=== PATIENT | female | born 1955 | race Caucasian/White ===

== ENCOUNTER 2016-12-28 16:26 | Emergency (ER) | payer OTHER ==
--- NOTE | 2016-12-28 18:44 | Emergency Department Report ---
Chief Complaint: Weakness Stated Complaint: PAIN RT HIP/WEAK - HPI History of Present Illness: DRASTIC WEIGHT LOSS IN 1 M VAG BLEED POST MENOPAUSE PALE DIAPHORETIC WEAK PMH NONE RX NONE PSH NONE - Exam Vital Signs: Vital Signs 12/28/16 18:37 Temperature 97.6 F Pulse Rate 71 Respiratory 20 Rate Blood Pressure 226/111 O2 Sat by Pulse 100 Oximetry MSE screening note: Focused history and physical exam performed. Due to findings the following was ordered: ED Disposition for MSE Condition: Stable
[2016-12-28 19:14] LABS: Mean Corpuscular HGB Conc 31 % (30-34); Platelet Count 337 K/mm3 (140-440); Red Blood Count 3.16 M/mm3 (3.65-5.03)
[2016-12-28 19:17] LABS: White Blood Count 37.1 K/mm3 (4.5-11.0)
[2016-12-28 19:19] LABS: Hematocrit 18.7 % (30.3-42.9); Hemoglobin 5.8 gm/dl (10.1-14.3)
[2016-12-28 19:20] LABS: Mean Corpuscular Hemoglobin 18 pg (28-32); Mean Corpuscular Volume 59 fl (79-97); Red Cell Distribution Width 27.2 % (13.2-15.2)
[2016-12-28 19:25] LABS: Albumin 3.4 g/dL (3.9-5); Albumin/Globulin Ratio 0.8 %; Bilirubin,Total 0.2 mg/dL (0.1-1.2); Calcium 8.8 mg/dL (8.4-10.2); Chloride 86.8 mmol/L (98-107); Total Protein 7.6 g/dL (6.3-8.2)
[2016-12-28 19:32] LABS: BUN/Creatinine Ratio 7.21
[2016-12-28 19:34] LABS: Potassium 8.4 mmol/L (3.6-5.0)
[2016-12-28 20:15] LABS: Basophils % (Manual) 0.5 % (0.0-1.8); Blastocytes % (Manual) 0 %; Eosinophils % (Manual) 0 % (0.0-4.3); Nucleated Red Blood Cells 0.5 % (0.0-0.9)
[2016-12-28 20:16] LABS: Hypochromasia 2+
[2016-12-28 20:17] LABS: Anisocytosis 3+; Microcytosis 3+
[2016-12-28 20:18] LABS: Poikilocytosis 3+
[2016-12-28 20:19] LABS: Elliptocytes 2+; Schistocytes 1+; Smudge Cells 1+
[2016-12-28 20:20] LABS: Diff Status Complete; Platelet Estimate Consistent w Auto; Polychromasia Few; Target Cells Few
--- NOTE | 2016-12-28 20:35 | Emergency Department Report ---
- General Chief complaint: Weakness Stated complaint: PAIN RT HIP/WEAK Time Seen by Provider: 12/28/16 20:29 Source: patient Mode of arrival: Ambulatory Limitations: Language Barrier - History of Present Illness Initial comments: Patient is a 61-year-old female with no known past medical history has not seen her doctor in many years presenting today because of generalized weakness. Patient has been generally feeling poor but is unable to explain exactly how long, appears to a months to possibly a year or so. She states that she has bilateral pelvic pain, vaginal bleeding for the last 1 month, lightheadedness, leg swelling on the right lower extremity, significant weight loss with about 20 or so pounds in the last month. - Related Data Allergies Allergy/AdvReac Type Severity Reaction Status Date / Time No Known Allergies Allergy Verified 12/28/16 20:01 ED Review of Systems ROS: Stated complaint: PAIN RT HIP/WEAK Other details as noted in HPI Comment: All other systems reviewed and negative Constitutional: denies: chills, fever ENT: denies: throat pain Respiratory: denies: cough, shortness of breath Cardiovascular: denies: chest pain Gastrointestinal: abdominal pain. denies: vomiting Skin: denies: rash Psychiatric: anxiety ED Physical Exam - General Limitations: Language Barrier General appearance: alert, other (pale, lethargic) - Head Head exam: Present: atraumatic - Eye Eye exam: Present: other (conjunctiva pale) - ENT ENT exam: Present: normal exam, normal orophraynx - Neck Neck exam: Present: normal inspection - Respiratory Respiratory exam: Present: normal lung sounds bilaterally. Absent: respiratory distress, wheezes - Cardiovascular Cardiovascular Exam: Present: regular rate, normal rhythm - GI/Abdominal GI/Abdominal exam: Present: soft. Absent: distended, tenderness, guarding - Extremities Exam Extremities exam: Present: normal inspection - Neurological Exam Neurological exam: Present: alert. Absent: motor sensory deficit - Psychiatric Psychiatric exam: Present: normal affect - Skin Skin exam: Absent: rash ED Course Vital Signs 12/28/16 12/28/16 18:37 20:47 Temperature 97.6 F Pulse Rate 71 82 Respiratory 20 Rate Blood Pressure 226/111 212/130 O2 Sat by Pulse 100 Oximetry - Reevaluation(s) Reevaluation #1: 12/28/16 22:11 The potassium was confirmed, medications to lower potassium were ordered, however the EKG did not show any changes consistent with hyperkalemia including a normal QRS and no hyperacute T waves. Reevaluation #2: 12/28/16 23:[address] Mari stave and bolt equalizer/onc fellow - will start process for transfer Reevaluation #3: 12/28/16 23:58 [facility] will accept Transfer under Dr. Kody Weaver, HOT DIP PLATING SUPERVISOR Reevaluation #4: 12/29/16 00:07 Spoke to family who is coming back in to the ER Reevaluation #5: 12/29/16 01:38 Patient will not be able to get dialysis without admission here, this will complicate transfer and patient is better to be transfered to [facility] where they can initiate dialysis. 12/29/16 01:[address] Mari at [facility] that patient has not received dialysis. Will initiate transfer. - Consultations Consultation #1: 12/28/16 22:36 Spoke to Jukebox Operator fashion editor, will arrange for emergent dialysis, request vascular surgeon for catheter placement 12/29/16 00:18 Spoke to sample grinder again, we'll need about 2 hours of dialysis. The dialysis nurse has been called and she is supposed to be on her way. Plan will be for the patient to receive dialysis prior to transfer. 12/29/16 01:17 Apparently unable to get ahold of dialysis nurse for the past 3 hours, just got in touch with the nurse, coming in now for dialysis; patient is having vasccath placed currently Consultation #2: 12/28/16 23:[address] Romero, recommended transfer as there is no stave and bolt equalizer-onc and since this mass that is likely cancerous and causing obstruction so not be something that can be operated on at this hospital. Calling transfer center Consultation #3: 12/28/16 23:24 Spoke to vascular surgeon, coming in to place vas-cath ED Medical Decision Making - Lab Data Result diagrams: 12/28/16 20:34 12/28/16 20:12 Critical Care Time: Yes Critical care time in (mins) excluding proc time.: 120 Critical care attestation.: If time is entered above; I have spent that time in minutes in the direct care of this critically ill patient, excluding procedure time. ED Disposition Clinical Impression: Hyperkalemia Acute renal failure (ARF) Qualifiers: Acute renal failure type: unspecified Qualified Code(s): N17.9 - Acute kidney failure, unspecified Anemia Qualifiers: Anemia type: unspecified type Qualified Code(s): D64.9 - Anemia, unspecified Hypertension Qualifiers: Hypertension type: unspecified secondary hypertension Qualified Code(s): I15.9 - Secondary hypertension, unspecified Disposition: DC/TX SHORT-TERM GEN HOSP INPT Is pt being admited?: No Condition: Critical Instructions: Hypertension (ED) Referrals: PRIMARY CARE, [Primary Care Provider] - 3-5 Days Time of Disposition: 22:44
[2016-12-28] MEDS: APRESOLINE IV ONE (20:47)
[2016-12-28 20:48] VITALS: BP 212/130
[2016-12-28 20:53] LABS: INR 1.1 (0.87-1.13)
[2016-12-28 20:54] LABS: Calcium 8.8 mg/dL (8.4-10.2); Chloride 85.2 mmol/L (98-107)
[2016-12-28 20:54] LABS: Partial Thromboplastin Time 35.6 Sec. (24.2-36.6)
[2016-12-28 20:57] LABS: Phosphorous 12.7 mg/dL (2.5-4.5)
[2016-12-28 21:03] LABS: BUN/Creatinine Ratio 7.21
[2016-12-28 21:04] LABS: Potassium 8.2 mmol/L (3.6-5.0)
[2016-12-28 21:22] LABS: Mean Corpuscular HGB Conc 30 % (30-34); Platelet Count 294 K/mm3 (140-440); Red Blood Count 3.16 M/mm3 (3.65-5.03)
--- NOTE | 2016-12-28 21:33 | Cat Scan Report ---
FINAL REPORT PROCEDURE: CT abdomen and pelvis without contrast. TECHNIQUE: Computerized axial tomography of the abdomen and pelvis was performed without intravenous contrast. This study is performed without intravascular contrast material and its sensitivity for abdominal and pelvic pathology, including neoplasms, inflammation, abscess, free fluid, thrombosis, arterial dissection and infarction, is reduced compared with a contrast enhanced study. HISTORY: Pelvic pain, bleeding, concern for cancer. COMPARISON: No prior studies are available for comparison. FINDINGS: The lung bases are clear. There is a small right pleural effusion. The heart size is normal. There is a small focal mass of low attenuation within the right lobe of the liver. This measures 17 millimeters x 11 millimeters. It may represent a simple cyst but is an indeterminate finding. The spleen and pancreas are grossly normal. Cholecystectomy clips are present. There is no biliary dilatation. The adrenal glands are not enlarged. Both kidneys appear normal in size. There is moderately severe bilateral hydronephrosis and hydroureter. Dilated ureters can be followed into the lower pelvis. There is some infiltration of the retroperitoneal fat medial to the kidneys and adjacent to the ureters. This may represent some extravasation of urine. The abdominal aorta has a normal caliber. There is no definite retroperitoneal adenopathy. The unopacified gastrointestinal tract is unremarkable. The uterus is markedly enlarged and lobulated. There are calcifications within the uterus. The findings are consistent with multiple leiomyomas. As a very rough approximation the uterus measures 11.0 centimeters x 6.8 centimeters x 10.5 centimeters. The uterus could be the cause of the ureteral obstructions. Referral to a gynecologic surgeon is recommended. The bladder is empty. The regional skeleton appears intact. IMPRESSION: Small right pleural effusion. Moderately severe bilateral hydronephrosis and hydroureter. Markedly enlarged uterus with leiomyomas. This may be compressing on the distal ureters. Small indeterminate hepatic mass which may represent a cyst. Previous cholecystectomy.
[2016-12-28] MEDS ORDERED: D50W (25GM) IV ONE (21:40)
[2016-12-28 21:44] LABS: Hematocrit 19.3 % (30.3-42.9); Hemoglobin 5.7 gm/dl (10.1-14.3); Mean Corpuscular Hemoglobin 18 pg (28-32); Mean Corpuscular Volume 61 fl (79-97); Red Cell Distribution Width 26.9 % (13.2-15.2)
[2016-12-28] MEDS: SODIUM BICARBONATE 150 MEQ in D5W 1,000 ML IV ONE (22:00)
[2016-12-28] MEDS: CALCIUM GLUCONATE 1,000 MG in NACL 0.9% 100 ML IV ONE (22:04)
[2016-12-28] MEDS ORDERED: NACL 0.9% 500 ML 500 ML IV ONE (22:12)
[2016-12-28] MEDS ORDERED: LASIX 100 MG in NACL 0.9% 50 ML IV ONE (22:42)
[2016-12-28] MEDS ORDERED: KIONEX PO ONE (22:42)
[2016-12-28 22:50] LABS: Anisocytosis 3+; Basophils % (Manual) 0 % (0.0-1.8); Blastocytes % (Manual) 0 %; Diff Status Complete; Elliptocytes 2+; Eosinophils % (Manual) 0 % (0.0-4.3); Hypochromasia 2+; Microcytosis 3+; Platelet Estimate Consistent w Auto; Poikilocytosis 3+; Polychromasia Few; Schistocytes 1+; Target Cells Few
[2016-12-29] MEDS ORDERED: XYLOCAINE 1% 20 mL ONE (00:30)
[2016-12-29] MEDS ORDERED: FLUSH HEPARIN IV ONE (01:14)
--- NOTE | 2016-12-29 01:41 | Operative Report ---
Operative Report Operative Report: Operative note: Date: 12/29/2016 Preoperative diagnosis: Renal failure Postoperative diagnosis: Same. Operation: Right IJ Vas-Cath insertion Surgeon: Lovely Sosa. Asst.: None Anesthesia: Local with moderate sedation EBL: Minimal Findings: None Indications: Patient has acute renal failure who is potassium about 8 and needs urgent dialysis. Operative details: Patient located in ER prepped and draped right neck in a sterile fashion. After timeout performed and all team members in the agreement right IJ vein was accessed under ultrasound guidance with micropuncture needle and exchanged for micropuncture sheath, Vas-Cath. Wire was advanced in the IJ vein and SVC skin incision was made with 11 blade and serially dilated skin past with subsequent insertion of Vas-Cath catheter 15 cm in length. Ports were checked for good flow and flushed with saline and locked with 1.2 mL of heparin. Catheter was secured in place with 3-0 nylon stitches and sterile dressing applied. She tolerated the procedure well.
[2016-12-29 02:17] LABS: Chloride 86.2 mmol/L (98-107)
[2016-12-29 02:25] LABS: BUN/Creatinine Ratio 7.34; Potassium 8.2 mmol/L (3.6-5.0)
--- NOTE | 2016-12-29 06:51 | Admit Criteria Form ---
Admission Criteria Documentation: HYPONATREMIA; HYPERNATREMIA; HYPOKALEMIA; HYPERKALEMIA; HYPOCALCEMIA; HYPERCALCEMIA Clinical Indications for Inpatient Care (Place 'X' for any and all applicable criteria): Ongoing inpatient care may be indicated for ANY ONE of the following [G](1)(2)(3 )(5): [ ]I. Hyponatremia with ANY ONE of the following: [ ]a) Sodium less than 130 mEq/L (mmol/L) (new) (6)(22) [ ]b) Sodium less than 135 mEq/L (mmol/L) with ANY ONE of the following: [ ]i) Severe medical etiology requiring inpatient management (eg, heart failure, hypovolemia) [ ]ii) Altered mental status [ ]iii) Seizures [ ]II. Hypernatremia with ANY ONE of the following: [ ]a) Sodium greater than 155 mEq/L (mmol/L) [ ]b) Sodium greater than 150 mEq/L (mmol/L) with ANY ONE of the following: [ ] i) Altered mental status [ ]ii) Seizures [ ]iii) Severe medical etiology (eg, hypovolemia, diabetes insipidus) [ ]iv) Severe weakness [ ]v) Severe medical etiology (eg, hemolysis, infection, drug overdose) [ ]III. Hypokalemia with ANY ONE of the following: [ ]a) Potassium less than 2.5 mEq/L (mmol/L) despite outpatient and emergency treatment [ ]b) Potassium less than 3.0 mEq/L (mmol/L) with ANY ONE of the following: [ ]i) Weakness [ ]ii) Cardiac abnormality (eg, arrhythmia, conduction disturbance) [ ]iii) Cardiac ischemia [ ]iv) Ileus [ ]v) Ongoing medical cause requiring inpatient management. ( e.g., acute renal wasting, SIADH) [ ]vi) Other severe symptoms [X ] IV. Hyperkalemia with ANY ONE of the following: [X ]a) Potassium greater than 6.5 mEq/L (mmol/L) [ ]b) Potassium greater than 5 mEq/L (mmol/L) with ANY ONE of the following: [ ]i) Severe ECG findings [H] [ ]ii) Acute worsening of renal failure (creatinine greater than 2.5 mg/dL (221 micromoles/L) or significant elevation for age and size) [ ] V. Hypocalcemia with ANY ONE of the following: [ ]a) Calcium less than 7 mg/dL (1.75 mmol/L) despite outpatient and emergency treatment(19) [ ]b) Calcium less than 8 mg/dL (2 mmol/L) with significant symptoms or findings; examples include: [ ]i) Cardiac abnormality (eg, arrhythmia or conduction disturbance) [ ]ii) Altered mental status [ ]iii) Seizures [ ]iv) Breathing difficulty [ ]v) Muscle spasms [ ]. Hypercalcemia with ANY ONE of the following: [ ]a) Calcium greater than 14 mg/dL (3.5 mmol/L) [ ]b) Calcium greater than 12 mg/dL (3 mmol/L) with ANY ONE of the following: [ ]i) Significant dehydration or hypovolemia as indicated by ANY ONE of the following(2): [ ]1. Clinically significant dehydration as indicated by ANY ONE of the following: [ ]A. Acute loss of weight from baseline (5% of body weight in adults, 9% in pediatric patients) [ ]B. Hemodynamic instability [ ]C. Acute renal failure [ ]D. Serum sodium greater than 150 mEq/L (mmol/L) [ ]2) Dehydration that is persistent indicated by ALL of the following: [ ]A. Oral rehydration therapy not tolerated or insufficient to adequately correct dehydration [ ]B. Appropriate intravenous treatment (eg, fluids ) does not readily correct dehydration ie, after 12 to 24 hours of treatment) [ ]ii) Significant symptoms or findings; examples include: [ ]1) Altered mental status [ ]2) Cardiac abnormality (eg, arrhythmia, conduction disturbance) [ ]3) Cardiac abnormality (eg, arrhythmia, conduction disturbance) The original [employer] [facility] content created by [employer] has been revised. The portions of the content which have been revised are identified through the use of italic text or in bold, and [facility] has neither reviewed nor approved the modified material. All other unmodified content is copyright [facility] [employer] Please see references footnoted in the original [facility] [employer] edition 2016 Admission Criteria Met: Yes
--- NOTE | 2016-12-29 08:29 | XRay Report ---
Chest 2 views. Findings: The heart and pulmonary vessels are normal. The lungs are clear. There is blunting of the right costophrenic angle. The left angle is sharply defined. Impression: Right pleural scarring versus small effusion. Otherwise no significant findings.
--- NOTE | 2016-12-29 08:44 | XRay Report ---
RIGHT ANKLE: History: Ankle swelling The bones are well mineralized with normal bony contours and joint alignment. No fractures or destructive changes are noted . Mild soft tissue swelling is noted bilaterally. IMPRESSION: Mild soft tissue swelling without fracture or dislocation.
--- NOTE | 2016-12-29 08:44 | XRay Report ---
RIGHT ANKLE: The bones are well mineralized with normal bony contours and joint alignment. No fractures or destructive changes are noted and the adjacent soft tissues are normal. IMPRESSION: Normal study.
--- NOTE | 2016-12-29 08:46 | XRay Report ---
AP chest x-ray. Findings: The heart and lungs reveal no acute findings. A right jugular central line terminates at the cavoatrial junction with no evidence of pneumothorax.
== END 2016-12-29 02:24 | disposition short-term general hospital (02) ==
LOC: ED 16:26
DX: N17.9 Acute kidney failure, unspecified (principal); D64.9 Anemia, unspecified; I15.9 Secondary hypertension, unspecified; E87.5 Hyperkalemia
CPT/HCPCS: 36415; 36569; 71010; 71020; 73502; 73600; 74176; 80048; 80053; 83735; 84100; 84484; 85007; 85025; 85610; 85730; 86850; 86900; 86901; 86920; 93005; 93010; 96365; 96366; 96375; 99291; 99292; J0360; J0610; J1642; J7070; J1815